=== PATIENT | male | born 1970 | race Caucasian/White ===

== ENCOUNTER 2019-05-31 19:13 | Inpatient (IN) | payer BC ==
[~2019-05-31] VITALS: Ht 180.3 cm; Wt 123.4 kg
--- OUTSIDE RECORDS SUMMARY | 2019-05-31 19:17 | XMS REPORT | Encounter Summary ---
Author Organization Unknown Address [address] [place] [address] Phone [phone] Reason for Visit Medical Complaint Instructions 1. Pain in throat rapid strep group A, throat sore throat: care instructions 2. Acute sinusitis sinusitis: care instructions Zithromax Z-Stuart 250 mg tablet fluticasone 50 mcg/actuation nasal spray,suspension 3. History of hypertension Discussion Note: None recorded. Plan of Care Patient Instructions Follow up with PCP or go to ER or urgent care if symptoms get worsen Reminders Provider Appointments None recorded. Lab Rapid Strep Group a, Throat 07/06/2017 [facility] Referral None recorded. Procedures None recorded. Surgeries None recorded. Imaging None recorded. Medications Name Start Date acetaminophen 300 mg-codeine 30 mg tablet benzonatate 100 mg capsule TAKE ONE (1) OR TWO (2) CAPSULE(S) BY MOUTH THREE TIMES A DAY. doxycycline hyclate 100 mg tablet TAKE ONE (1) TABLET(S) BY MOUTH TWICE A DAY DIRECTED FOR 10 DAYS. fluticasone 50 mcg/actuation nasal spray,suspension [place] 1 spray twice a day by intranasal route. glyburide 5 mg tablet hydroxyzine HCl 25 mg tablet Take 1 tablet 3 times a day by oral route as needed. lisinopril 20 mg-hydrochlorothiazide 12.5 mg tablet metformin 500 mg tablet methylprednisolone 4 mg tablets in a dose pack Take by oral route as directed omeprazole 40 mg capsule,delayed release ondansetron 4 mg disintegrating tablet permethrin 5 % topical cream ProAir RespiClick 90 mcg/actuation breath activated INHALE TWO (2) PUFF(S) BY MOUTH EVERY 4 TO 6 HOURS NEEDED FOR 10 DAYS. simvastatin 40 mg tablet triamcinolone acetonide 0.1 % topical cream Zithromax Z-Stuart 250 mg tablet TAKE 2 TABLETS (500 MG) BY ORAL ROUTE ONCE DAILY FOR 1 DAY THEN 1 TABLET (250 MG) BY ORAL ROUTE ONCE DAILY FOR 4 DAYS Medications Administered None recorded. Vitals Height Weight BMI Blood Pressure 5 ft 11 in 290 lbs 40.4 kg/m2 140/80 mm[Hg] Lab Results Date Name Specimen Result Interpretation Description Value Range Status Address Rapid Strep Group a, Throat Result negative [facility]: [address] [place] [address] Swab Location Left and Right tonsillar pillars [facility]: [address] [place] [address] Allergies Code Code System Name Reaction Severity Status Onset Penicillins Active Problems Name Status Onset Date Source Hypertensive Disorder Active Encounter Acute Sinusitis Active Encounter Acute Bronchitis Active Encounter Body Mass Index 40+ - Severely Obese Active Encounter Procedures None recorded. Vaccine List Vaccine Type influenza, injectable, quadrivalent 07/20/2016 Social History Smoking Status Never Smoker Past Encounters 07/06/2017 Pain in Throat; Acute Sinusitis; History of Hypertension NIDHI SmithC: [address] [place] [address], Ph. [phone] History of Present Illness Kyilf-Aizpotllgn-Pexifau Reported By: Patient HPI: Location: head/sinuses. Quality: nasal/sinus congestion. Duration: 7days. Severity: moderate. Onset/Timing: gradual. Context: no sick contacts, no foreign travel, non-smoker. Modifying factors: OTC medication. Associated Symptoms: no shortness of breath, no wheezing, no change in number of pillows needed to sleep at night, no sweats, no significant weight gain, no significant weight loss, no vomiting, no diarrhea, no rash, no nausea, no fever, no muscle aches, yellow- green, thick sputum, sore throat; sinus tenderness Review of Systems:ROS as noted in the HPI Review of Systems Basic Reported By: Patient Physical Exam Adult Basic, Adult Male Complete Reported By: Patient Constitutional: General Appearance: healthy-appearing, well-nourished, well-developed. Level of Distress: NAD. Ambulation: ambulating normally Psychiatric: Mental Status: active and alert. Orientation: to time, to place, to person Dni-Yfgz-Rgkzt-Throat: Ears: no lesions on external ear, no outer ear tenderness, EACs clear, TMs clear, TM mobility normal. Hearing: no hearing loss. Nose: no lesions on external nose, nares patent, no septal deviation, nasal passages clear, sinus tenderness, nasal discharge--purulent, post nasal drip. Lips, Teeth, and Gums: no mouth or lip ulcers, no bleeding gums, normal dentition. Oropharynx: moist mucous membranes, no erythema, no exudates, tonsils not enlarged Neck: Lymph Nodes: no cervical LAD Lungs: Respiratory effort: no dyspnea, no tachypnea, no use of accessory muscles, no intercostal retractions. Auscultation: breath sounds normal, good air movement Cardiovascular: Heart Auscultation: RRR, no murmurs Neurologic: Gait and Station: normal gait, normal station
--- OUTSIDE RECORDS SUMMARY | 2019-05-31 19:17 | XMS REPORT | Continuity of Care Document ---
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 [employer] Unavailable Unavailable Problems Problem Status Onset Date Classification Date Reported Comments Source Cough 08/18/2018 Diagnosis 08/22/2018 [facility] Acute sinusitis 08/18/2018 Diagnosis 08/22/2018 [facility] Pain in throat 07/06/2017 Diagnosis 07/06/2017 [facility] History of hypertension 07/06/2017 Diagnosis 07/06/2017 [facility] Atopic dermatitis 11/17/2016 Diagnosis 11/17/2016 [facility] Hypertensive disorder Problem 08/22/2018 [facility] Body mass index 40+ - severely obese Problem 08/22/2018 [facility] Acute bronchitis Problem 07/06/2017 [facility] Medications Medication Details Route Status Patient Instructions Ordering Provider Order Date Source Brompheniramine Maleate 0.4 MG/ML / Dextromethorphan Hydrobromide 2 MG/ML / Pseudoephedrine Hydrochloride 6 MG/ML Oral Solution [Bromfed DM] Bromfed DM 2 mg-30 mg-10 mg/5 mL syrup Take 10 mL every 4-6 hours by oral route as directed for 10 days. Active [facility] dapagliflozin 10 MG Oral Tablet [Farxiga] Farxiga 10 mg tablet Active [facility] Hydrochlorothiazide 12.5 MG / Lisinopril 20 MG Oral Tablet lisinopril 20 mg-hydrochlorothiazide 12.5 mg tablet Active [facility] Metformin hydrochloride 500 MG Oral Tablet metformin 500 mg tablet Active [facility] 200 ACTUAT Albuterol 0.09 MG/ACTUAT Dry Powder Inhaler [ProAir] ProAir RespiClick 90 mcg/actuation breath activated INHALE TWO (2) PUFF(S) BY MOUTH EVERY 4 TO 6 HOURS NEEDED FOR 10 DAYS. Active [facility] Azithromycin 250 MG Oral Tablet Zithromax Z-Stuart 250 mg tablet TAKE 2 TABLETS (500 MG) BY ORAL ROUTE ONCE DAILY FOR 1 DAY THEN 1 TABLET (250 MG) BY ORAL ROUTE ONCE DAILY FOR 4 DAYS Active [facility] Acetaminophen 300 MG / Codeine Phosphate 30 MG Oral Tablet acetaminophen 300 mg-codeine 30 mg tablet Active [facility] benzonatate 100 MG Oral Capsule benzonatate 100 mg capsule TAKE ONE (1) OR TWO (2) CAPSULE(S) BY MOUTH THREE TIMES A DAY. Active [facility] doxycycline hyclate 100 MG Oral Tablet doxycycline hyclate 100 mg tablet TAKE ONE (1) TABLET(S) BY MOUTH TWICE A DAY DIRECTED FOR 10 DAYS. Active [facility] Fluticasone propionate 0.05 MG/ACTUAT Metered Dose Nasal [place] fluticasone 50 mcg/actuation nasal spray,suspension [place] 1 spray twice a day by intranasal route. Active [facility] Glyburide 5 MG Oral Tablet glyburide 5 mg tablet Active [facility] Hydroxyzine Hydrochloride 25 MG Oral Tablet hydroxyzine HCl 25 mg tablet Take 1 tablet 3 times a day by oral route as needed. Active [facility] methylprednisolone 4 mg tablets in a dose pack methylprednisolone 4 mg tablets in a dose pack Take by oral route as directed Active [facility] Omeprazole 40 MG Delayed Release Oral Capsule omeprazole 40 mg capsule,delayed release Active [facility] Ondansetron 4 MG Disintegrating Oral Tablet ondansetron 4 mg disintegrating tablet Active [facility] Permethrin 50 MG/ML Topical Cream permethrin 5 % topical cream Active [facility] Simvastatin 40 MG Oral Tablet simvastatin 40 mg tablet Active [facility] Triamcinolone Acetonide 1 MG/ML Topical Cream triamcinolone acetonide 0.1 % topical cream Active [facility] Medrol (Stuart) 4 mg tablets in a dose pack Medrol (Stuart) 4 mg tablets in a dose pack Take by oral route as directed Active [facility] benzonatate 100 MG Oral Capsule [Tessalon Perles] Tessalon Perles 100 mg capsule Take 1-2 capsule(s) 3 times a day by oral route. Active [facility] Allergies, Adverse Reactions, Alerts Substance Category Reaction Severity Reaction type Status Date Reported Comments Source Penicillins Allergy to substance 10/19/2016 [facility] Immunizations Immunization Date Given Site Status Last Updated Comments Source influenza, injectable, quadrivalent 07/20/2016 completed [facility] Results Order Name Results Value Reference Range Date Interpretation Comments Source Influenza A negative 08/18/2018 [facility] Influenza B negative 08/18/2018 [facility] RESULT negative 07/06/2017 [facility] SWAB LOCATION Left and Right tonsillar pillars 07/06/2017 [facility] Influenza A negative 10/19/2016 [facility] Influenza B negative 10/19/2016 [facility] Pathology Reports No Data Provided for This Section Diagnostic Reports No Data Provided for This Section Consultation Notes No Data Provided for This Section Discharge Summaries No Data Provided for This Section History and Physicals No Data Provided for This Section Vital Signs Vital Sign Value Date Comments Source Diastolic (mm Hg) 76 08/18/2018 [facility] Height 71 08/18/2018 [facility] Systolic (mm Hg) 138 08/18/2018 [facility] Weight 270 08/18/2018 [facility] Diastolic (mm Hg) 80 07/06/2017 [facility] Height 71 07/06/2017 [facility] Systolic (mm Hg) 140 07/06/2017 [facility] Weight 290 07/06/2017 [facility] Diastolic (mm Hg) 86 11/17/2016 [facility] Height 71 11/17/2016 [facility] Systolic (mm Hg) 158 11/17/2016 [facility] Weight 290 11/17/2016 [facility] Diastolic (mm Hg) 94 10/19/2016 [facility] Height 71 10/19/2016 [facility] Systolic (mm Hg) 142 10/19/2016 [facility] Weight 300 10/19/2016 [facility] Encounters Location Location Details Encounter Type Encounter Number Reason For Visit Attending Provider ADM Date DC Date Status Source [place] - [id number] 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 [id number] Swati Garland 10/19/2016 [facility] [place] [id number] TARA StarrC: [address] [place] [address], Ph. [phone] [id number] Lia Mosquera 11/17/2016 [facility] [place] [id number] SUSAN Smith-C: [address] [facility] [place] [address], Ph. [phone] [id number] Deya Nolberto 07/06/2017 [facility] [place] [id number]: [address] [place] [address], Ph. [id number] Victor Manuel Singh 08/18/2018 [facility] [place] [facility]: [address] [place] [address], Ph. [id number] Victor Manuel Singh 08/18/2018 [facility] Procedures No Data Provided for This Section Assessment and Plan No Data Provided for This Section Plan of Care No Data Provided for This Section Social History Social History Date Source Smoking Status Never Smoker 10/19/2016 [facility] Family History No Data Provided for This Section Advance Directives No Data Provided for This Section Functional Status No Data Provided for This Section
--- OUTSIDE RECORDS SUMMARY | 2019-05-31 19:17 | XMS REPORT | Encounter Summary ---
Author Organization Unknown Address [address] [place] [address] Phone [phone] Reason for Visit Medical Complaint Instructions 1. Acute sinusitis sinusitis: care instructions Zithromax Z-Stuart 250 mg tablet rapid flu (A+B) 2. Cough Bromfed DM 2 mg-30 mg-10 mg/5 mL syrup Discussion Note Drink plenty of water and other fluids. This may help soothe a dry or sore throat. Honey or lemon juice in hot water or tea may ease a dry cough. Prop up your head on pillows to help you breathe and ease a cough. Do not smoke or allow others to smoke around you. Smoke can make a cough worse. If you need help quitting, talk to your doctor about stop-smoking programs and medicines. These can increase your chances of quitting for good. Avoid exposure to smoke, dust, or other pollutants, or wear a face mask. Check with your doctor or pharmacist to find out which type of face mask will give you the most benefit. Take cough medicine as directed by your doctor. Try cough drops to soothe a dry or sore throat. Cough drops don't stop a cough. Medicine-flavored cough drops are no better than candy-flavored drops or hard candy. Plan of Care Reminders Provider Appointments None recorded. Lab Rapid Flu (A+B) 08/22/2018 [facility] Referral None recorded. Procedures None recorded. Surgeries None recorded. Imaging None recorded. Medications Name Start Date Bromfed DM 2 mg-30 mg-10 mg/5 mL syrup Take 10 mL every 4-6 hours by oral route as directed for 10 days. Farxiga 10 mg tablet lisinopril 20 mg-hydrochlorothiazide 12.5 mg tablet metformin 500 mg tablet ProAir RespiClick 90 mcg/actuation breath activated INHALE TWO (2) PUFF(S) BY MOUTH EVERY 4 TO 6 HOURS NEEDED FOR 10 DAYS. Zithromax Z-Stuart 250 mg tablet TAKE 2 TABLETS (500 MG) BY ORAL ROUTE ONCE DAILY FOR 1 DAY THEN 1 TABLET (250 MG) BY ORAL ROUTE ONCE DAILY FOR 4 DAYS Medications Administered None recorded. Vitals Height Weight BMI Blood Pressure 5 ft 11 in 270 lbs 37.7 kg/m2 138/76 mm[Hg] Lab Results Date Name Specimen Result Interpretation Description Value Range Status Address Rapid Flu (A+B) Influenza a negative [facility]: [address] [place] [address] Influenza B negative [facility]: [address] [place] [address] Allergies Code Code System Name Reaction Severity Status Onset Penicillins Active Problems Name Status Onset Date Source Hypertensive Disorder Active Encounter Body Mass Index 40+ - Severely Obese Active Encounter Procedures None recorded. Vaccine List Vaccine Type influenza, injectable, quadrivalent 07/20/2016 Social History Smoking Status Never Smoker Past Encounters 08/18/2018 Acute Sinusitis; Cough Victor Manuel Singh PA-C: [address] [place] [address], Ph. History of Present Illness Cough Reported By: Patient HPI: Location: chest, nasal/sinus. Quality: productive cough, sore throat, colored phlegm, congested. Duration: 14 days. Severity: moderate. Onset/Timing: gradual. Context: no sick contacts, no foreign travel, non-smoker. Modifying factors: OTC medication. Associated Symptoms: no shortness of breath, no wheezing, no sweats, no significant weight gain, no significant weight loss, no morning cough, no vomiting, no diarrhea, no rash, no nausea, no headache, yellow-green, thick sputum, sore throat, fever/chills, muscle aches; chest tightness Review of Systems Basic Reported By: Patient Constitutional: Constitutional: fever; subjective Eyes: Eyes: no eye complaints Cocx-Cmpc-Xjbjh-Throat: Ears: ; itchy and some pain. Nose: nose/sinus problems. Mouth/Throat: no bleeding gums, no mouth complaints, no teeth problems, sore throat Cardiovascular: Cardiovascular: no chest pain, no shortness of breath, no known heart murmur Respiratory: Respiratory: no wheezing, cough, shortness of breath Gastrointestinal: Gastrointestinal: no abdominal pain, no vomiting / diarrhea Genitourinary: Genitourinary: no urinary complaints, no discharge Musculoskeletal: Musculoskeletal: no muscle aches, no muscle weakness, no arthralgias/joint pain, no back pain Skin: Skin: no abnormal / changing mole, no jaundice, no rashes Neurologic: Neurologic: no loss of consciousness, no weakness, no numbness, no seizures, no dizziness, no headaches, headache Physical Exam Adult Basic, Adult Male Complete Reported By: Patient Constitutional: General Appearance: healthy-appearing, morbidly obese. Level of Distress: NAD. Ambulation: ambulating normally Psychiatric: Mental Status: active and alert. Orientation: to time, to place, to person Eyes: Lids and Conjunctivae: non-injected, no discharge, no pallor. Pupils: PERRLA. EOM: EOMI. Sclerae: non-icteric. Vision: acuity grossly intact, peripheral vision grossly intact Wbt-Wuwy-Tweug-Throat: Ears: no lesions on external ear, no outer ear tenderness, EACs clear, TMs clear, TM mobility normal, middle ear fluid. Hearing: no hearing loss. Nose: no lesions on external nose, nares patent, no septal deviation, nasal passages clear, no sinus tenderness, post nasal drip; swollen turbinates. Lips, Teeth, and Gums: no mouth or lip ulcers, no bleeding gums, normal dentition. Oropharynx: moist mucous membranes, no erythema, no exudates, tonsils not enlarged; cobblestoning Neck: Neck: supple, trachea midline, no masses, FROM. Lymph Nodes: no cervical LAD, no supraclavicular LAD Lungs: Respiratory effort: no dyspnea, no tachypnea, no use of accessory muscles, no intercostal retractions. Auscultation: breath sounds normal, good air movement Cardiovascular: Heart Auscultation: RRR, no murmurs
--- OUTSIDE RECORDS SUMMARY | 2019-05-31 19:17 | XMS REPORT | Encounter Summary ---
Author Organization Unknown Address [address] [place] [address] Phone [phone] Reason for Visit Medical Complaint; congestion, cough, fever, chills, sinus infection x 7 days Instructions 1. Acute sinusitis probiotics education sinusitis: care instructions doxycycline hyclate 100 mg tablet 2. Acute bronchitis rapid flu (A+B) Tessalon Perles 100 mg capsule bronchitis: care instructions ProAir RespiClick 90 mcg/actuation breath activated 3. Hypertensive disorder elevated blood pressure: care instructions 4. Body mass index 40+ - severely obese Discussion Note: None recorded. Plan of Care Patient Instructions REST, DRINK PLENTY OF FLUID, CAN DRINK PEDIALYTE FOR ORAL REHYDRATION. F/U IF YOUR SYMPTOMS DO NOT IMPROVE. GO TO ER IF YOUR SYMPTOMS GET WORSE Reminders Provider Appointments None recorded. Lab Rapid Flu (A+B) 10/19/2016 [facility] Referral None recorded. Procedures None recorded. Surgeries None recorded. Imaging None recorded. Medications Name Start Date doxycycline hyclate 100 mg tablet Take 1 tablet twice a day by oral route as directed for 10 days. glyburide 5 mg tablet lisinopril 20 mg-hydrochlorothiazide 12.5 mg tablet omeprazole 40 mg capsule,delayed release ProAir RespiClick 90 mcg/actuation breath activated Inhale 2 puffs every 4-6 hours by inhalation route as needed for 10 days. simvastatin 40 mg tablet Tessalon Perles 100 mg capsule Take 1-2 capsule(s) 3 times a day by oral route. Medications Administered None recorded. Vitals Height Weight BMI Blood Pressure 5 ft 11 in 300 lbs 41.8 142/94 Lab Results Date Name Result Description Value Range Status Rapid Flu (A+B) Influenza a negative Influenza B negative Allergies Name Reaction Severity Onset Penicillins Problems Name Status Onset Date Source Hypertensive Disorder Active Encounter Acute Sinusitis Active Encounter Acute Bronchitis Active Encounter Body Mass Index 40+ - Severely Obese Active Encounter Procedures None recorded. 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 History of Present Illness Uqwgj-Spdxmvuyen-[place]maauge Reported By: Patient HPI: Location: head/sinuses, chest. Quality: productive cough, colored phlegm, nasal/sinus congestion; sinus pressure. Duration: 7days. Severity: moderate. Onset/Timing: gradual. Context: no sick contacts, no foreign travel, non-smoker, allergies; started as URI. Modifying factors: OTC medication. Associated Symptoms: no sputum production, no shortness of breath, no wheezing, no change in number of pillows needed to sleep at night, no sweats, no significant weight gain, no significant weight loss, no sore throat, no vomiting, no diarrhea, no rash, no nausea, no fever, no muscle aches, no headache, fatigue, morning cough; subjective fever Review of Systems Basic Reported By: Patient Physical Exam Adult Basic Constitutional: General Appearance: healthy-appearing, morbidly obese. Level of Distress: NAD. Ambulation: ambulating normally Psychiatric: Mental Status: active and alert. Orientation: to time, to place, to person Cnd-Ucwi-Wcuas-Throat: Ears: no lesions on external ear, no outer ear tenderness, EACs clear, TMs clear. Hearing: no hearing loss. Nose: no lesions on external nose, nares patent, no septal deviation, nasal passages clear, no nasal discharge, sinus tenderness. Lips, Teeth, and Gums: no mouth or lip ulcers, no bleeding gums, normal dentition. Oropharynx: moist mucous membranes, no exudates, tonsils not enlarged, erythema Neck: Neck: supple, FROM. Lymph Nodes: no cervical LAD Lungs: Respiratory effort: no dyspnea, no tachypnea, no use of accessory muscles, no intercostal retractions. Auscultation: expiratory wheezing, rhonchi Cardiovascular: Heart Auscultation: RRR, no murmurs Musculoskeletal:: Motor Strength and Tone: normal motor strength, normal tone Neurologic: Gait and Station: normal gait, normal station. Sensation: grossly intact
--- OUTSIDE RECORDS SUMMARY | 2019-05-31 19:17 | XMS REPORT | Encounter Summary ---
Author Organization Unknown Address [address] [place] [address] Phone [phone] Reason for Visit Medical Complaint Instructions 1. Acute sinusitis sinusitis: care instructions Zithromax Z-Stuart 250 mg tablet 2. Cough Bromfed DM 2 mg-30 mg-10 [...] Care Reminders Provider Appointments None recorded. Lab None recorded. Referral None recorded. Procedures None recorded. Surgeries [...] lbs 37.7 kg/m2 138/76 mm[Hg] Lab Results None recorded. Allergies Code Code System Name Reaction Severity Status Onset Penicillins Active Problems Name Status Onset Date Source Hypertensive Disorder Active Encounter Body Mass Index 40+ - Severely Obese Active Encounter Procedures None recorded. Vaccine List Vaccine Type influenza, injectable, quadrivalent 07/20/2016 Social History Smoking Status Never Smoker Past Encounters 08/18/2018 Acute Sinusitis; Cough Victor Manuel Singh PA-C: [address] [place] [address], Ph. History of Present Illness Cough Reported [...] fever; subjective Eyes: Eyes: no eye complaints Hptg-Onhh-Ostmz-Throat: Ears: ; itchy and some pain. Nose: [...] acuity grossly intact, peripheral vision grossly intact Ncw-Shyv-Fjpep-Throat: Ears: no lesions on external ear, no [...]
--- OUTSIDE RECORDS SUMMARY | 2019-05-31 19:17 | XMS REPORT | Encounter Summary ---
Author Organization Unknown Address [address] [place] [address] Phone [phone] Reason for Visit Medical Complaint Instructions 1. Atopic dermatitis Medrol (Stuart) 4 mg tablets in a dose pack hydroxyzine HCl 25 mg tablet Discussion Note: None recorded. Patient educational handouts: No information available. Plan of Care Patient Instructions Please add an antihistamine (Zyrtec) and/or hydroxyzine at night to help with the itching and swelling. Please seek care (PCP, Urgent Care, ER) or return to [facility] if symptoms get worse or do not resolve in 1 week. Reminders Provider Appointments None recorded. Lab None recorded. Referral None recorded. Procedures None recorded. Surgeries None recorded. Imaging None recorded. Medications Name Start Date benzonatate 100 mg capsule TAKE ONE (1) OR TWO (2) CAPSULE(S) BY MOUTH THREE TIMES A DAY. doxycycline hyclate 100 mg tablet TAKE ONE (1) TABLET(S) BY MOUTH TWICE A DAY DIRECTED FOR 10 DAYS. glyburide 5 mg tablet hydroxyzine HCl 25 mg tablet Take 1 tablet 3 times a day by oral route as needed. lisinopril 20 mg-hydrochlorothiazide 12.5 mg tablet Medrol (Stuart) 4 mg tablets in a dose pack Take by oral route as directed omeprazole 40 mg capsule,delayed release ProAir RespiClick 90 mcg/actuation breath activated INHALE TWO (2) PUFF(S) BY MOUTH EVERY 4 TO 6 HOURS NEEDED FOR 10 DAYS. simvastatin 40 mg tablet Medications Administered None recorded. Vitals Height Weight BMI Blood Pressure 5 ft 11 in 290 lbs 40.4 (1) 170/90 (2) 158/86 Lab Results None recorded. Allergies Name Reaction Severity Onset Penicillins Problems Name Status Onset Date Source Hypertensive Disorder Active Encounter Acute Sinusitis Active Encounter Acute Bronchitis Active Encounter Body Mass Index 40+ - Severely Obese Active Encounter Procedures None recorded. Vaccine List Vaccine Type influenza, injectable, quadrivalent 07/19/2016 Social History Smoking Status Never Smoker Past Encounters 11/17/2016 Atopic Dermatitis Lia Mosquera PA-C: [address] [facility], [place] [address], Ph. [phone] History of Present Illness Jryn-Mvtwiwn-Njvhr-Skin Lesion-Bite 1 Reported By: Patient HPI: Location: chest, arms, legs. Quality: itchy. Severity: worsening. Duration: has noted for <1 week. Context: no new detergents or skin products, no one else with similar rash, no sting or bite. Associated Symptoms: no fever/chills, no muscle aches, no headache, no cold symptoms, no nausea, no vomiting, no diarrhea, no urinary symptoms Review of Systems Basic Reported By: Patient Constitutional: Constitutional: no fever Eyes: Eyes: no eye complaints Nqwn-Yixk-Dafgt-Throat: Ears: no ear complaints. Nose: no nose/sinus problems. Mouth/Throat: no sore throat, no bleeding gums, no mouth complaints, no teeth problems Cardiovascular: Cardiovascular: no chest pain, no shortness of breath, no known heart murmur Respiratory: Respiratory: no cough, no wheezing, no shortness of breath Gastrointestinal: Gastrointestinal: no abdominal pain, no vomiting / diarrhea Genitourinary: Genitourinary: no urinary complaints, no discharge Musculoskeletal: Musculoskeletal: no muscle aches, no muscle weakness, no arthralgias/joint pain, no back pain Skin: Skin: no abnormal / changing mole, no jaundice, rash, itching Neurologic: Neurologic: no loss of consciousness, no weakness, no numbness, no seizures, no dizziness, no headaches Physical Exam Adult Basic, Adult Male Complete, Expanded Skin Exam 1 Reported By: Patient Constitutional: General Appearance: healthy-appearing, well-nourished, well-developed. Level of Distress: NAD. Ambulation: ambulating normally Psychiatric: Mental Status: active and alert. Orientation: to time, to place, to person Eyes: Lids and Conjunctivae: non-injected, no discharge, no pallor Lki-Krel-Gscny-Throat: Ears: no lesions on external ear, no outer ear tenderness, EACs clear, TMs clear, TM mobility normal. Hearing: no hearing loss. Nose: no lesions on external nose, nares patent, no septal deviation, nasal passages clear, no sinus tenderness, no nasal discharge. Lips, Teeth, and Gums: no mouth or lip ulcers, no bleeding gums, normal dentition. Oropharynx: moist mucous membranes, no erythema, no exudates, tonsils not enlarged Neck: Lymph Nodes: no cervical LAD Lungs: Respiratory effort: no dyspnea, no tachypnea, no use of accessory muscles, no intercostal retractions. Percussion: no dullness, flatness, or hyperresonance. Auscultation: breath sounds normal, good air movement Cardiovascular: Heart Auscultation: RRR, no murmurs Skin: Rash / Lesion description morphology: papule 1cm, location: on the trunk: abdomen, location: on the trunk: pubic area, location: on the upper extremities, location: on the lower extremities
[2019-05-31 19:20] VITALS: BP 138/69
[2019-05-31] MEDS ORDERED: ASPIRIN 81 MG CHEW TAB PO ONE (19:30)
[2019-05-31] MEDS ORDERED: METOPROLOL SUCCINATE 50 MG TAB XL PO ONE (19:30)
[2019-05-31 19:57] LABS: BASOPHILS # (AUTO) 0.1 (0.0-0.1); BASOPHILS % 0.9 % (0.0-1.0); EOSINOPHILS # (AUTO) 0.2 (0.0-0.4); EOSINOPHILS % 2.2 % (0.0-6.0); HEMATOCRIT 45.6 % (38.2-49.6); HEMOGLOBIN 16.1 g/dL (14.0-18.0); LYMPHOCYTES # (AUTO) 2.5 (1.0-3.2); LYMPHOCYTES % 25.4 % (18.0-39.1); MEAN CORPUSCULAR HEMOGLOBIN 30.3 pg (28-32); MEAN CORPUSCULAR HGB CONC 35.3 g/dL (31-35); MEAN CORPUSCULAR VOLUME 85.9 fL (81-99); MONOCYTES # (AUTO) 0.8 (0.2-0.8); MONOCYTES % 7.9 % (4.4-11.3); NEUTROPHILS # (AUTO) 6.2 (2.1-6.9); NEUTROPHILS % 62.5 % (38.7-80.0); PLATELET COUNT 243 x10e3/uL (140-360); RED BLOOD COUNT 5.31 x10e6/uL (4.3-5.7); RED CELL DISTRIBUTION WIDTH 12.9 % (11.7-14.4)
[2019-05-31 20:17] LABS: ALANINE AMINOTRANSFERASE 34 IU/L (0-55); ALKALINE PHOSPHATASE 81 IU/L (40-150); ANION GAP 18.9 mmol/L (8-16); BLOOD UREA NITROGEN 21 mg/dL (7-26); BUN/CREATININE RATIO 17 (6-25); CALCIUM 9.5 mg/dL (8.4-10.2); CARBON DIOXIDE 22 mmol/L (22-29); CHLORIDE 97 mmol/L (98-107); CREATINE KINASE 148 IU/L (30-200); CREATININE, SERUM 1.23 mg/dL (0.72-1.25); EST GLOMERULAR FILTRATION RATE > 60 ML/MIN (60-); GLUCOSE 234 mg/dL (74-118); POTASSIUM 3.9 mmol/L (3.5-5.1); SODIUM 134 mmol/L (136-145)
[2019-05-31] MEDS ORDERED: FISH OIL 1,2001 EACH (20:33)
[2019-05-31] MEDS ORDERED: METFORMIN HCL500 MG PO (20:33)
[2019-05-31] MEDS ORDERED: LISINOPRIL-HCT1 EACH (20:33)
[2019-05-31] MEDS ORDERED: HOME (20:43)
[2019-05-31] MEDS ORDERED: [UNRECOGNIZED DRUG - REMARK] (20:43)
[2019-05-31 21:00] VITALS: BP 138/79
[2019-05-31] MEDS: METFORMIN HCL 500 MG TAB PO SCH (21:14)
[2019-05-31 22:22] VITALS: BP 138/79
--- NOTE | 2019-05-31 23:55 | NUR ---
Report received from ARELY Wolff. Patient received in unit @1910 by wheelchair. Patient alert/oriented x3. Denied pain and no SOB. Respiration even and unlabored. Head to toe assessment completed. No skin breakdown noted. Bed in lower position,locked. Call avitia within reach. patient instructed to call for help as needed, patient verbalized and understand.
[2019-06-01] VITALS (8 sets, daily range): BP systolic 130–137; BP diastolic 73–91
[2019-06-01] MEDS ORDERED: ASPIRIN 81 MG CHEW TAB PO ONE ×2 (01:30→12:00)
[2019-06-01 06:06] LABS: BASOPHILS # (AUTO) 0.1 (0.0-0.1); BASOPHILS % 0.6 % (0.0-1.0); EOSINOPHILS # (AUTO) 0.2 (0.0-0.4); EOSINOPHILS % 2.7 % (0.0-6.0); HEMATOCRIT 43.7 % (38.2-49.6); HEMOGLOBIN 14.6 g/dL (14.0-18.0); LYMPHOCYTES # (AUTO) 2.5 (1.0-3.2); LYMPHOCYTES % 31.9 % (18.0-39.1); MEAN CORPUSCULAR HEMOGLOBIN 29.2 pg (28-32); MEAN CORPUSCULAR HGB CONC 33.4 g/dL (31-35); MEAN CORPUSCULAR VOLUME 87.4 fL (81-99); MONOCYTES # (AUTO) 0.9 (0.2-0.8); MONOCYTES % 11.6 % (4.4-11.3); NEUTROPHILS # (AUTO) 4.1 (2.1-6.9); NEUTROPHILS % 51.9 % (38.7-80.0); PLATELET COUNT 203 x10e3/uL (140-360); RED CELL DISTRIBUTION WIDTH 12.9 % (11.7-14.4)
[2019-06-01 06:39] LABS: ALANINE AMINOTRANSFERASE 30 IU/L (0-55); ALBUMIN 3.7 g/dL (3.5-5.0); ALBUMIN/GLOBULIN RATIO 1.1 (0.8-2.0); ALKALINE PHOSPHATASE 63 IU/L (40-150); ANION GAP 15.2 mmol/L (8-16); BLOOD UREA NITROGEN 20 mg/dL (7-26); BUN/CREATININE RATIO 20 (6-25); CALCIUM 9.5 mg/dL (8.4-10.2); CARBON DIOXIDE 27 mmol/L (22-29); CHLORIDE 98 mmol/L (98-107); CREATINE KINASE 102 IU/L (30-200); CREATININE, SERUM 1.02 mg/dL (0.72-1.25); EST GLOMERULAR FILTRATION RATE > 60 ML/MIN (60-); GLUCOSE 178 mg/dL (74-118); POTASSIUM 4.2 mmol/L (3.5-5.1); SODIUM 136 mmol/L (136-145)
--- NOTE | 2019-06-01 07:19 | NUR ---
REPORT GIVEN TO ONCOMING NURSE, WALKING ROUND DONE.
[2019-06-01] MEDS: METFORMIN HCL 500 MG TAB PO SCH ×2 (08:00→17:00)
[2019-06-01] MEDS: METOPROLOL SUCCINATE 50 MG TAB XL PO SCH (08:11)
[2019-06-01] MEDS: ASPIRIN 81 MG CHEW TAB PO SCH (08:11)
[2019-06-01 10:39] LABS: CHOL/HDL RATIO 12.9 (3.9-4.7); CHOLESTEROL 388 MD/DL (0-199); HDL CHOLESTEROL 30 MG/DL (40-60); TRIGLYCERIDES 1091 MG/DL (0-149)
[2019-06-01] MEDS ORDERED: LIDOCAINE HCL 2% LOCAL 20 ML VIAL ONE (16:24)
[2019-06-01] MEDS ORDERED: FENTANYL CITRATE/PF 100MCG/2 ML INJ ONE ×2 (16:24→19:09)
[2019-06-01] MEDS ORDERED: MIDAZOLAM HCL 2 MG/2 ML VIAL ONE ×3 (16:24→19:08)
[2019-06-01] MEDS ORDERED: HEPARIN SOD/SOD CHLORIDE 2,000 ML ONE (16:25)
[2019-06-01] MEDS ORDERED: IOPAMIDOL 370 MG/ML 200 ML INFUS..BTL INJ ONE (16:26)
[2019-06-01] MEDS ORDERED: SODIUM CHLORIDE 0.9% 1000ML 1,000 ML ONE (16:27)
[2019-06-01] MEDS ORDERED: NITROGLYCERIN/D5W 200 MCG/ML 250 ML ONE (17:54)
[2019-06-01] MEDS ORDERED: HEPARIN SOD (PORCINE) 1000 UNIT/ML 30ML ONE (17:54)
[2019-06-01] MEDS ORDERED: ATROPINE SULFATE 0.1 MG/ML 10ML SYR ONE (18:12)
--- NOTE | 2019-06-01 18:18 | NUR ---
6022 Received verbal read back for tele observation bed per Dr Rich link cardiology. In tel tracker warehouse logistics manager notified ds/rn
[2019-06-01] MEDS ORDERED: TICAGRELOR 90 MG TABLET ONE (18:25)
[2019-06-01] MEDS ORDERED: ASPIRIN 325 MG TAB ONE (18:25)
--- NOTE | 2019-06-01 20:35 | History and Physical ---
REASON FOR ADMISSION: Chest pain and abnormal exercise treadmill stress test. HISTORY OF PRESENT ILLNESS: This is a 48-year-old male with history of hypertension, hyperlipidemia, diabetes mellitus, and known heart murmur, who presented to the Cardiology Clinic yesterday with complaints of chest pain for the last six weeks. The patient reports he has had intermittent chest pain lasting 5-10 minutes at a time. The pain is described as burning with radiation to the back between the shoulder blades and down his left arm. He describes it as 8-9/10 in severity and is not associated with shortness of breath, nausea, or diaphoresis. He notes that this pain can be brought on by activity and is relieved with rest. He otherwise denies any edema, orthopnea, or PND. In Cardiology Clinic yesterday, he was evaluated with an exercise treadmill stress test with marked ST abnormalities during exercise stress. He was therefore sent to the ER for further evaluation. Echocardiogram done at the office revealed moderate aortic stenosis. Echo at the office revealed moderate aortic stenosis. On evaluation in the ER, he was noted to have an abnormal troponin with elevation of 0.45. He was therefore admitted for further care. REVIEW OF SYSTEMS: Negative, except as per HPI. PAST MEDICAL HISTORY: 1. Hypertension. 2. Hyperlipidemia. 3. Diabetes mellitus. 4. Murmur. PAST SURGICAL HISTORY: 1. Right ACL repair. 2. Left knee surgery. 3. Lumbar spine. ALLERGIES: PLEASE SEE EMR. MEDICATIONS: Please see medication list. SOCIAL HISTORY: Denies tobacco or illicit drugs. He does drink alcohol occasionally. FAMILY HISTORY: Pertinent for mother with a stent and father of a myocardial infarction at the age of 59. PHYSICAL EXAMINATION: VITAL SIGNS: Temperature 97.5 degrees, pulse 68, respiratory rate 18, blood pressure 131/70, and oxygen saturation 96% on room air. GENERAL: Awake, alert, in no acute distress. HEENT: Normocephalic and atraumatic. Pupils equal. No scleral icterus. NECK: Supple. No thyroid or cervical lymphadenopathy. No carotid bruits. LUNGS: Clear to auscultation bilaterally. No wheezes or crackles. CARDIOVASCULAR: Normal rate regular rhythm, 4/6 systolic murmur appreciated at the right upper sternal border. ABDOMEN: Soft and nontender. EXTREMITIES: No edema. NEUROLOGIC: Nonfocal exam. LABORATORY DATA: Sodium 136, potassium 4.2, chloride 98, CO2 of 27, BUN 20, creatinine 1.02, and troponin 0.321. Triglycerides 1091. Cholesterol 388. HDL 30. LDL could not be calculated due to hypertriglyceridemia. CBC 7.92, hemoglobin 14.6, hematocrit 43.7, and platelets 203. EKG, normal sinus rhythm. Nonspecific T-wave abnormality. IMPRESSION: 1. Non-ST elevation myocardial infarction. 2. Moderate aortic stenosis. 3. Hypertension. 4. Hyperlipidemia. 5. Diabetes mellitus. RECOMMENDATIONS: Keep the patient n.p.o. Further recommendations based on evaluation of coronary anatomy. Recommend starting the patient on Vascepa. Brisa Bueno MD ABS/MODL /[id number]
--- NOTE | 2019-06-01 22:28 | NUR ---
PT ARRIVED BY HOSPITAL BED TO ROOM 105. PT CURRENTLY LAYING FLAT IN BED REVERSED TRENDELENBURG. PT IS AAOX3, RR EVEN AND NON-LABORED, ON ROOM AIR. PT REPORTS PAIN TO LOWER BACK. LEFT PT LAYING SEMI FOWLERS IN BED, BED IN LOW LOCKED POSITION, SIDE RAILS UPX2, CALL LIGHT AND PHONE WITHIN REACH.
--- NOTE | 2019-06-01 22:30 | NUR ---
(R) GROIN DRESSING CDI, NO S/SX OF BLEEDING NOTED, SOFT TO PALPATION.
--- NOTE | 2019-06-01 22:38 | NUR ---
SPOKE WITH MD HOWARD COVERING FOR MD REY CONCERNING PAIN MEDICATION. NEW ORDERS RECEIVED.
[2019-06-01] MEDS ORDERED: MORPHINE SULFATE 2 MG/ML SYR 1ML IV PRN (22:45)
[2019-06-02] VITALS: BP 169/96
--- NOTE | 2019-06-02 02:57 | NUR ---
PT ASSISTED TO BATHROOM AND TO SIT ON SIDE OF BED. PROVIDED PT WITH SANDWICH AND HEATED UP SOUP PT PROVIDED. LEFT PT SITTING ON SIDE OF BED. BED IN LOW LOCKED POSITION, SIDE RAILS UPX2, CALL LIGHT AND PHONE WITHIN REACH. DRESSING TO (R) GROIN NOTED TO BE INTACT, NO S/SX OF BLEEDING, SOFT TO PALPATION.
[2019-06-02 04:00] VITALS: BP 163/85
--- NOTE | 2019-06-02 06:56 | NUR ---
received report from restoration silversmith RN, pt laying in bed, no distress noted, awake, alert, oriented, call light within reach, will continue to assess.
[2019-06-02 07:55] VITALS: BP 163/85
[2019-06-02 08:00] VITALS: BP 136/76
[2019-06-02] MEDS: METFORMIN HCL 500 MG TAB PO SCH ×2 (09:29→17:20)
[2019-06-02] MEDS: METOPROLOL SUCCINATE 50 MG TAB XL PO SCH (09:31)
[2019-06-02] MEDS: ASPIRIN 81 MG CHEW TAB PO SCH (09:31)
[2019-06-02 12:00] VITALS: BP 157/84
[2019-06-02 16:27] VITALS: BP 146/91
[2019-06-02] MEDS ORDERED: BRILINTA90 MG PO (17:30)
[2019-06-02] MEDS ORDERED: CRESTOR10 MG PO (17:30)
[2019-06-02] MEDS ORDERED: COQ-10100 MG PO (17:31)
--- NOTE | 2019-06-03 05:06 | Discharge Summary ---
DISCHARGE DIAGNOSES: 1. Multivessel coronary artery disease, status post percutaneous coronary intervention of the right coronary artery. 2. Moderate aortic stenosis. 3. Hyperlipidemia. 4. Diabetes mellitus. 5. Obesity. DISCHARGE ACTIVITY: As tolerated. DISCHARGE DISPOSITION: To home. DISCHARGE CONDITION: Stable. DISCHARGE DIET: Diabetic, low-cholesterol diet. DISCHARGE MEDICATIONS: See medication reconciliation form. DISCHARGE FOLLOWUP: Two weeks discharge. HOSPITAL COURSE: The patient is a 48-year-old man with a history of hypertension, hyperlipidemia, diabetes mellitus, and obesity who presented to an outpatient clinic, performed a stress test in showed inferior ST elevations. He was found to have moderate to severe aortic stenosis. He underwent cardiac catheterization, which revealed significant disease in the obtuse marginal and right coronary artery. He underwent successful percutaneous coronary intervention to the RCA and right posterior descending coronary artery. He was stable at the time of discharge. DO MAYELA Penn/GONZALEZ /[id number]
== END 2019-06-02 17:48 | disposition home or self-care (01) | DRG 247 ==
LOC: IMCU 19:13 → OBSVTOIN 06-01 18:23 → MED/SURG 06-01 22:34
PROVIDERS: ADMIT Internal Medicine Interventional Cardiology; ATTEND Internal Medicine Interventional Cardiology
PROC: 027034Z Dilation of Coronary Artery, One Artery with Drug-eluting Intraluminal Device, Percutaneous Approach (ICD-10-PCS; principal; 2019-06-01)
PROC: 4A023N7 Measurement of Cardiac Sampling and Pressure, Left Heart, Percutaneous Approach (ICD-10-PCS; 2019-06-01)
PROC: B2111ZZ Fluoroscopy of Multiple Coronary Arteries using Low Osmolar Contrast (ICD-10-PCS; 2019-06-01)
PROC: B2151ZZ Fluoroscopy of Left Heart using Low Osmolar Contrast (ICD-10-PCS; 2019-06-01)
DX: I21.4 Non-ST elevation (NSTEMI) myocardial infarction (principal); I25.110 Atherosclerotic heart disease of native coronary artery with unstable angina pectoris; I35.0 Nonrheumatic aortic (valve) stenosis; E78.5 Hyperlipidemia, unspecified; E11.9 Type 2 diabetes mellitus without complications; E66.9 Obesity, unspecified; Z68.37 Body mass index [BMI] 37.0-37.9, adult
CPT/HCPCS: 36415; 80053; 80061; 82550; 82553; 82948; 83036; 84484; 85025; 92928; 93005; 93458; C1725; C1760; C1769; C1874; G0378; J1644; J2001; J2250; J2270; J3010; J7030; Q9967